=== PATIENT | female | born 1955 | race American Indian/Alaskan Native ===

== ENCOUNTER 2019-12-22 17:07 | Emergency (ER) | payer MEDICAID ==
[2019-12-22] MEDS ORDERED: Sodium Chloride 0.9% 10 ML Syringe FLUSH PRN (17:24)
--- NOTE | 2019-12-22 17:33 | EDM.PDOC ---
<Rashad Blankenship G - Last Filed: 12/22/19 18:19> ED HPI GENERAL MEDICAL PROBLEM - General Chief Complaint: Gastrointestinal Problem Stated Complaint: BACK PAIN,BLOODY STOOL Time Seen by Provider: 12/22/19 17:15 Source of Information: Reports: Patient, Old Records, RN History Limitations: Reports: No Limitations - History of Present Illness INITIAL COMMENTS - FREE TEXT/NARRATIVE: 64 yo NA female presents with onset of dark stools last night associated with some low back pain. She is on ASA therapy which is prescribed. She is dizzy with standing. Denies ETOH use. Has no hx of PUD. Her stools have not been red or maroon. No nausea or vomiting. No use of ibuprofen or Aleve recently. Has been having some loose stools since starting Jardiance. Did not take her Jardiance at home. Has a glucose monitor, but does not use it because she says she does not know how. Onset: Gradual Onset Date: 12/21/19 Onset Time: 22:00 Duration: Hour(s):, Intermittent Location: Reports: Back (pain) Quality: Reports: Ache Severity: Mild Improves with: Reports: None Worsens with: Reports: Other (? 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) Back Pain Score (Numeric/FACES): 9 - Related Data Allergies Allergy/AdvReac Type Severity Reaction Status Date / Time atorvastatin Allergy Cannot Verified 12/22/19 17:38 Remember codeine Allergy Itching Verified 12/22/19 17:38 duloxetine Allergy Cannot Verified 12/22/19 17:38 Remember morphine Allergy Cannot Verified 12/22/19 17:38 Remember Home Meds: Home Meds Aspirin 81 mg PO DAILY 11/08/18 [History] Metoprolol Tartrate [Lopressor] 50 mg PO DAILY 11/08/18 [History] Clopidogrel [Plavix] 75 mg PO DAILY 12/22/19 [History] Empagliflozin [Jardiance] 25 mg PO DAILY 12/22/19 [History] Rosuvastatin [Crestor] 10 mg PO DAILY 12/22/19 [History] traMADol [Ultram] 50 mg PO ASDIRECTED 12/22/19 [History] Past Medical History Cardiovascular History: Reports: Hypertension 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 Denies: Abdominal Pain, Bloody Stool, Constipation, Hematochezia, Nausea, Vomiting : Reports: No Symptoms Musculoskeletal: Reports: Back Pain (low) Skin: Reports: No Symptoms Neurological: Reports: No Symptoms ED EXAM, GI/ABD - Physical Exam Exam: See Below Exam Limited By: No Limitations General Appearance: Alert, WD/WN, No Apparent Distress Eyes: Bilateral: Normal Appearance Ears: Normal External Exam, Normal Canal, Hearing Grossly Normal, Normal TMs Nose: Normal Inspection, No Blood Throat/Mouth: Normal Inspection, Normal Lips, Normal Oropharynx, Normal Voice, No Airway Compromise Head: Atraumatic, Normocephalic Neck: Normal Inspection Respiratory/Chest: No Respiratory Distress, Lungs Clear, Normal Breath Sounds, No Accessory Muscle Use Cardiovascular: Regular Rate, Rhythm, No Edema GI/Abdominal Exam: Normal Bowel Sounds, Soft, Non-Tender, No Distention, Other (formed soft stool in rectum, brown in color) Back Exam: Normal Inspection. No: CVA Tenderness (R), CVA Tenderness (L) Extremities: Normal Inspection, Normal Range of Motion, Non-Tender, No Pedal Edema. No: Pedal Edema Neurological: Alert, Oriented, CN II-XII Intact, Normal Cognition, No Motor/Sensory Deficits Psychiatric: Normal Affect, Normal Mood Skin Exam: Warm, Dry, Intact, Normal Color, No Rash Departure - Departure Disposition: Home, Self-Care 01 Clinical Impression: Hyperglycemia, Dehydration - Discharge Information Referrals: PCP,None [Primary Care Provider] - Forms: ED Department Discharge Care Plan Goals: stay on her diabetic meds until she sees a provider, appt with diabetic educater, push fluids, pepcid 20 mg bid for gi burning. <Karol Blackwell - Last Filed: 12/22/19 19:57> Course - Vital Signs Last Recorded V/S: Last Vital Signs Temp 36.7 C 12/22/19 17:38 Pulse 66 12/22/19 17:38 Resp 17 10/05/20 17:38 BP 182/121 H 12/22/19 17:38 Pulse Ox 96 12/22/19 17:38 Orthostatic Blood Pressure [ 142/81 Standing] Orthostatic Blood Pressure [ 155/101 Sitting] Orthostatic Blood Pressure [ 194/112 Supine] - Orders/Labs/Meds Orders: Active Orders 24 hr Category Date Time Status Orthostatic Vital Signs [RC] ASDIRECTED Care 12/22/19 17:22 Active Sodium Chloride 0.9% [Saline Flush] Med 12/22/19 17:24 Active 10 ml FLUSH ASDIRECTED PRN Saline Lock Insert [OM.PC] Routine Oth 12/22/19 17:24 Ordered Medication Orders Sodium Chloride (Saline Flush) 10 ml FLUSH ASDIRECTED PRN PRN Reason: Keep Vein Open Last Admin: 12/22/19 17:55 Dose: 10 ml Documented by: TEAGAN Labs: Laboratory Tests 12/22/19 12/22/19 12/22/19 Range/Units 17:22 17:22 17:37 WBC 6.5 (4.5-11.0) K/uL RBC 5.76 H (3.30-5.50) M/uL Hgb 16.4 H (12.0-15.0) g/dL Hct 49.6 H (36.0-48.0) % MCV 86 (80-98) fL MCH 29 (27-31) pg MCHC 33 (32-36) % Plt Count 230 (150-400) K/uL Sodium 134 L (140-148) mmol/L Potassium 3.5 L (3.6-5.2) mmol/L Chloride 96 L (100-108) mmol/L Carbon Dioxide 27 (21-32) mmol/L Anion Gap 14.5 H (5.0-14.0) mmol/L BUN 13 (7-18) mg/dL Creatinine 1.1 H (0.6-1.0) mg/dL Est Cr Clr Drug Dosing 43.30 mL/min Estimated GFR (MDRD) 50 L (>60) Glucose 545 H* (74-106) mg/dL POC Glucose (74-106) MG/DL Calcium 9.1 (8.5-10.1) mg/dL Magnesium (1.8-2.4) mg/dL Total Bilirubin 0.3 (0.2-1.0) mg/dL AST 21 (15-37) U/L ALT 39 (12-78) U/L Alkaline Phosphatase 192 H (46-116) U/L Total Protein 7.1 (6.4-8.2) g/dL Albumin 3.5 (3.4-5.0) g/dL Globulin 3.6 H (2.3-3.5) g/dL Albumin/Globulin Ratio 1.0 L (1.2-2.2) Lipase (73-393) U/L Urine Color Yellow (YELLOW) Urine Appearance Clear (CLEAR) Urine pH 6.5 (5.0-8.0) Ur Specific Gratis 1.020 (1.008-1.030) Urine Protein Negative (NEGATIVE) mg/dL Urine Glucose (UA) 500 H (NEGATIVE) mg/dL Urine Ketones Negative (NEGATIVE) mg/dL Urine Occult Blood Trace-intact H (NEGATIVE) Urine Nitrite Negative (NEGATIVE) Urine Bilirubin Negative (NEGATIVE) Urine Urobilinogen 0.2 (0.2-1.0) EU/dL Ur Leukocyte Esterase Negative (NEGATIVE) Urine RBC 0-5 (0-5) Urine WBC 0-5 (0-5) Ur Epithelial Cells Few Amorphous Sediment Few Urine Bacteria Not seen Urine Mucus Not seen 12/22/19 12/22/19 12/22/19 Range/Units 18:16 18:22 19:30 WBC (4.5-11.0) K/uL RBC (3.30-5.50) M/uL Hgb (12.0-15.0) g/dL Hct (36.0-48.0) % MCV (80-98) fL MCH (27-31) pg MCHC (32-36) % Plt Count (150-400) K/uL Sodium (140-148) mmol/L Potassium (3.6-5.2) mmol/L Chloride (100-108) mmol/L Carbon Dioxide (21-32) mmol/L Anion Gap (5.0-14.0) mmol/L BUN (7-18) mg/dL Creatinine (0.6-1.0) mg/dL Est Cr Clr Drug Dosing mL/min Estimated GFR (MDRD) (>60) Glucose (74-106) mg/dL POC Glucose 372 H (74-106) MG/DL Calcium (8.5-10.1) mg/dL Magnesium 1.8 (1.8-2.4) mg/dL Total Bilirubin (0.2-1.0) mg/dL AST (15-37) U/L ALT (12-78) U/L Alkaline Phosphatase (46-116) U/L Total Protein (6.4-8.2) g/dL Albumin (3.4-5.0) g/dL Globulin (2.3-3.5) g/dL Albumin/Globulin Ratio (1.2-2.2) Lipase 235 (73-393) U/L Urine Color (YELLOW) Urine Appearance (CLEAR) Urine pH (5.0-8.0) Ur Specific Gratis (1.008-1.030) Urine Protein (NEGATIVE) mg/dL Urine Glucose (UA) (NEGATIVE) mg/dL Urine Ketones (NEGATIVE) mg/dL Urine Occult Blood (NEGATIVE) Urine Nitrite (NEGATIVE) Urine Bilirubin (NEGATIVE) Urine Urobilinogen (0.2-1.0) EU/dL Ur Leukocyte Esterase (NEGATIVE) Urine RBC (0-5) Urine WBC (0-5) Ur Epithelial Cells Amorphous Sediment Urine Bacteria Urine Mucus Meds: Medications Generic Name Dose Route Start Last Admin Trade Name Farzaneh PRN Reason Stop Dose Admin Sodium Chloride 10 ml 12/22/19 17:24 12/22/19 17:55 Saline Flush FLUSH 10 ml ASDIRECTED PRN Administration Keep Vein Open Discontinued Medications Generic Name Dose Route Start Last Admin Trade Name Farzaneh PRN Reason Stop Dose Admin Famotidine 20 mg 12/22/19 18:22 12/22/19 18:43 Pepcid IVPUSH 12/22/19 18:23 20 mg ONETIME ONE Administration Lactated Ringer's 1,000 mls @ 1,000 mls/hr 12/22/19 18:15 12/22/19 18:25 Ringers, Lactated IV 12/22/19 19:14 1,000 mls/hr BOLUS ONE Administration Insulin Human Regular 12 unit 12/22/19 18:16 12/22/19 18:24 Humulin R SUBCUT 12/22/19 18:17 12 units ONETIME ONE Administration Potassium Chloride 40 meq 12/22/19 18:16 12/22/19 18:23 Potassium Chloride PO 12/22/19 18:17 40 meq ONETIME ONE Administration - Re-Assessments/Exams Free Text/Narrative Re-Assessment/Exam: 12/22/19 19:51 pt had a repeat bs after the insulin. Her bs was down to 300. She is feeling better. Her stomach has settled down. She want to be seen at [facility] for her care. Departure - Departure Time of Disposition: 19:52 Condition: Fair Sepsis Event Note (ED) - Focused Exam Vital Signs: Vital Signs Temp Pulse Resp BP Pulse Ox 12/22/19 17:38 36.7 C 66 17 182/121 H 96 12/22/19 17:22 36.7 C 66 17 182/121 H 96
[2019-12-22] MEDS ORDERED: Lactated Ringers 1,000 ML IV ONE (18:15)
[2019-12-22] MEDS ORDERED: Insulin Regular, Human 100 Units/ML 3 ML Vial SUBCUT ONE (18:16)
[2019-12-22] MEDS ORDERED: Potassium Chloride 10 MEQ Cap.ER PO ONE (18:16)
[2019-12-22] MEDS ORDERED: Famotidine 20 MG/2 ML SDV IVPUSH ONE (18:22)
== END 2019-12-22 20:05 | disposition home or self-care (01) ==
LOC: JP.ED 17:07
DX: E86.0 Dehydration (principal); R73.9 Hyperglycemia, unspecified; K92.1 Melena; M54.5 Low back pain; I10 Essential (primary) hypertension; Z86.73 Personal history of transient ischemic attack (TIA), and cerebral infarction without residual deficits; Z88.8 Allergy status to other drugs, medicaments and biological substances; Z88.5 Allergy status to narcotic agent; Z79.82 Long term (current) use of aspirin; Z79.02 Long term (current) use of antithrombotics/antiplatelets; Z79.899 Other long term (current) drug therapy
CPT/HCPCS: 36415; 80053; 81001; 82272; 82962; 83690; 83735; 85027; 96361; 96374; 99284; A9270; J1815; J3490; J7120